=== PATIENT | female | born 1985 | race Caucasian/White ===

== ENCOUNTER 2023-03-06 12:24 | Emergency (ER) | payer OTHER, SELFPAY ==
[2023-03-06 12:32] VITALS: BP 139/88; PULSE 80; RESP 12; TEMP 36.5; O2SAT 100; BMI 22.9
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
== END 2023-03-06 16:03 | disposition home or self-care (01) ==
PROVIDERS: Emergency Provider Emergency Medicine; PCP Internal Medicine; Visit Provider Emergency Medicine
DX: S22.20XA Unspecified fracture of sternum, initial encounter for closed fracture (principal); M25.571 Pain in right ankle and joints of right foot; S80.11XA Contusion of right lower leg, initial encounter; V43.52XA Car driver injured in collision with other type car in traffic accident, initial encounter; W22.10XA Striking against or struck by unspecified automobile airbag, initial encounter; Y92.410 Unspecified street and highway as the place of occurrence of the external cause
CPT/HCPCS: 71250; 73590; 73610; 99282

== ENCOUNTER → 2023-08-27 | Outpatient (CLI) | payer OTHER, SELFPAY ==
[2023-08-27 16:35] LABS: T4 Free Direct 1.03 ng/dL (0.76-1.46); Thyroid Stim Hormone (TSH) 2.39 uIU/mL (0.358-3.74)
[2023-08-29 04:07] LABS: Thyroid Peroxidase AB < 9 IU/mL (0-34)
== END | disposition home or self-care (01) ==
LOC: PAVLAB 15:24
PROVIDERS: PCP Internal Medicine; Referring Provider Nurse Practitioner Women's Health; Visit Provider Nurse Practitioner Women's Health
DX: N93.9 Abnormal uterine and vaginal bleeding, unspecified (principal); Z13.29 Encounter for screening for other suspected endocrine disorder
CPT/HCPCS: 36415; 84439; 84443; 86376

== ENCOUNTER → 2023-08-30 | Outpatient (CLI) | payer OTHER, SELFPAY ==
--- NOTE | 2023-08-30 07:47 | US_ITS ---
STUDY: ULTRASOUND OF THE FEMALE PELVIS - COMPLETE REASON FOR EXAM: Female, 38 years old. Bleeding -- AUB -- IRREGULAR CYCLES LMP: August 07, 2023 TECHNIQUE: Transabdominal and Transvaginal TECHNICAL QUALITY: Adequate. COMPARISON: None. FINDINGS: The uterus is anteverted and is in a midline position. The uterus measures 9.4 cm x 6.5 cm x 4.7 cm. There is a Nabothian cyst of the cervix. The endometrium measures 11 mm in thickness, and is hyperechoic. There is no demonstrated endometrial mass. There is no demonstrated myometrial mass. I.U.D. - The patient does not have an I.U.D. The right ovary is visualized. The right ovary measures 3.2 cm x 3.5 cm x 2.9 cm. There is a dominant follicle in the right ovary measuring 1.3 cm x 1 cm x 0.9 cm. There is no visualized right adnexal mass or complex lesion. There is normal arterial and normal venous vascularity. The left ovary is visualized. The left ovary measures 4.5 cm x 3.8 cm x 2.4 cm. There is a 3.5 cm x 2.9 cm x 2.9 cm left ovarian cyst. There is no visualized left adnexal mass or complex lesion. There is normal arterial and normal venous vascularity. There is no fluid in the cul-de-sac. The pre void volume of the bladder was 268 ml. US/Pelvic w/ Transvaginal IMPRESSION: 3.5 cm x 2.9 cm by 2.9 cm left ovarian cyst. Electronically Signed: John Friedman MD at 10:14 EDT ,
== END | disposition home or self-care (01) ==
LOC: US 07:46
PROVIDERS: PCP Internal Medicine; Referring Provider Nurse Practitioner Women's Health; Visit Provider Nurse Practitioner Women's Health
DX: N93.9 Abnormal uterine and vaginal bleeding, unspecified (principal)
CPT/HCPCS: 76830; 76856

== ENCOUNTER → 2023-10-15 | Outpatient (CLI) | payer OTHER, SELFPAY ==
--- NOTE | 2023-10-15 08:01 | US_ITS ---
STUDY: ULTRASOUND OF THE FEMALE PELVIS - COMPLETE REASON FOR EXAM: Female, 38 years old. Monitor ovarian cyst LMP: October 04, 2023. TECHNIQUE: Transabdominal and Transvaginal TECHNICAL QUALITY: Adequate. COMPARISON: Comparison is made with prior study dated August 30, 2023. FINDINGS: The uterus is anteverted and is in a midline position. The uterus measures 10 cm x 6.4 cm x 5 cm. Normal uterine cervix. The endometrium measures 12.6 mm in thickness, and is heterogeneous (striated). There is no demonstrated endometrial mass. There is no demonstrated myometrial mass. I.U.D. - The patient does not have an I.U.D. The right ovary is visualized. The right ovary measures 2.9 cm x 2 cm x 1.5 cm. There is no right ovarian cyst or ovarian mass. There are 2 small adjacent right paraovarian cysts. The larger measures 1.8 cm x 1.5 cm x 1.4 cm. There is normal arterial and normal venous vascularity. The left ovary is visualized. The left ovary measures 4 cm x 2.6 cm x 2.5 cm. There is a 2 cm x 1.8 cm x 1.8 cm dominant follicle in the left ovary. There is also evidence of a 2.4 cm x 2.7 cm x 2.1 cm left paraovarian cyst. There is no visualized left adnexal mass or complex lesion. There is normal arterial and normal venous vascularity. There is no fluid in the cul-de-sac. The pre void volume of the bladder was 237 ml. US/Pelvic w/ Transvaginal IMPRESSION: Dominant follicle in the left ovary. Bilateral paraovarian cysts. Electronically Signed: John Friedman MD at 15:02 EDT ,
== END | disposition home or self-care (01) ==
LOC: US 07:59
PROVIDERS: PCP Internal Medicine; Referring Provider Nurse Practitioner Women's Health; Visit Provider Nurse Practitioner Women's Health
DX: N83.202 Unspecified ovarian cyst, left side (principal)
CPT/HCPCS: 76830; 76856

== ENCOUNTER → 2024-09-30 | Outpatient (CLI) | payer OTHER, SELFPAY ==
[2024-10-05 10:08] LABS: HPV APTIMA, High Risk Negative (Negative)
== END | disposition home or self-care (01) ==
LOC: LABSPEC 16:19
PROVIDERS: PCP Internal Medicine; Visit Provider Nurse Practitioner Women's Health
DX: Z12.4 Encounter for screening for malignant neoplasm of cervix (principal)
CPT/HCPCS: 87624; 88175; G0145